=== PATIENT | male | born 1965 | race Caucasian/White ===

== ENCOUNTER → 2016-10-30 | Outpatient (CLI) | payer BC | LOC: BHSO 15:39 | DX: F41.1 Generalized anxiety disorder (principal) ==

== ENCOUNTER → 2017-01-14 | Outpatient (CLI) | payer BC | LOC: BHSO 15:31 | DX: F41.1 Generalized anxiety disorder (principal) ==

== ENCOUNTER → 2017-04-14 | Outpatient (CLI) | payer BC | LOC: BHSO 15:47 | DX: F41.1 Generalized anxiety disorder (principal) ==

== ENCOUNTER → 2017-06-01 | Outpatient (CLI) | payer BC | LOC: BHSO 15:54 | DX: F33.1 Major depressive disorder, recurrent, moderate (principal) ==

== ENCOUNTER → 2017-07-14 | Outpatient (CLI) | payer BC | LOC: BHSO 14:36 | DX: F41.1 Generalized anxiety disorder (principal) ==

== ENCOUNTER → 2017-09-14 | Outpatient (CLI) | payer BC | LOC: BHSO 15:13 | DX: F41.1 Generalized anxiety disorder (principal) ==

== ENCOUNTER → 2018-05-20 | Outpatient (CLI) | payer BC | LOC: BHSO 11:15 | DX: F33.42 Major depressive disorder, recurrent, in full remission (principal) | CPT/HCPCS: G0463 ==

== ENCOUNTER → 2018-07-22 | Outpatient (CLI) | payer BC | LOC: BHSO 11:35 | DX: F33.41 Major depressive disorder, recurrent, in partial remission (principal) | CPT/HCPCS: G0463 ==

== ENCOUNTER → 2018-10-06 | Outpatient (CLI) | payer BC | LOC: BHSO 08:17 | DX: F33.42 Major depressive disorder, recurrent, in full remission (principal) | CPT/HCPCS: G0463 ==

== ENCOUNTER → 2019-01-18 | Outpatient (CLI) | payer BC | LOC: BHSO 08:14 | DX: F33.1 Major depressive disorder, recurrent, moderate (principal) | CPT/HCPCS: G0463 ==

== ENCOUNTER → 2019-03-22 | Outpatient (CLI) | payer BC | LOC: BHSO 08:17 | DX: F33.41 Major depressive disorder, recurrent, in partial remission (principal) | CPT/HCPCS: G0463 ==

== ENCOUNTER → 2019-06-27 | Outpatient (CLI) | payer BC | LOC: COL.VAS 10:30 | DX: M54.2 Cervicalgia (principal); R51 Headache ==

== ENCOUNTER → 2019-06-28 | Outpatient (CLI) | payer BC | LOC: BHSO 07:57 | DX: F33.42 Major depressive disorder, recurrent, in full remission (principal) | CPT/HCPCS: G0463 ==

== ENCOUNTER → 2020-04-11 | Outpatient (CLI) | payer BC | LOC: BHSO 10:40 | DX: F41.1 Generalized anxiety disorder (principal) | CPT/HCPCS: G0463 ==

== ENCOUNTER → 2020-05-30 | Outpatient (CLI) | payer BC | LOC: COL.RAD 07:17 | DX: K40.90 Unilateral inguinal hernia, without obstruction or gangrene, not specified as recurrent (principal); M16.0 Bilateral primary osteoarthritis of hip | CPT/HCPCS: Q9967 ==

== ENCOUNTER 2020-06-03 14:45 | Outpatient (RCR) | payer BC | END 2020-07-22 | disposition home or self-care (01) | LOC: MKS.ESL.PT | DX: M43.07 Spondylolysis, lumbosacral region (principal); M43.06 Spondylolysis, lumbar region | CPT/HCPCS: G0283-GP ==

== ENCOUNTER 2020-10-14 16:15 | Outpatient (RCR) | payer BC | END 2020-10-17 | disposition home or self-care (01) | LOC: MKS.ESL.PT | DX: M47.812 Spondylosis without myelopathy or radiculopathy, cervical region (principal) ==

== ENCOUNTER 2020-11-27 16:30 | Outpatient (RCR) | payer BC | END 2021-02-18 | disposition still patient (30) | LOC: MKS.ESL.PT | DX: M47.812 Spondylosis without myelopathy or radiculopathy, cervical region (principal) ==